=== PATIENT | female | born 1940 | race Caucasian/White ===

== ENCOUNTER → 2018-01-03 | Outpatient (CLI) | payer OTHER ==
[~2018-01-03] MED LIST: ASPI81EC; ATOR40TA; Aspirin EC81 MG PO; BENA20; CITA20 PO; ESOM20 PO; HYDACE5 PO; IBUP800 PO; Lisinopril2.5 MG; METF500; METF500 PO; METF500C PO; NEBI10 PO; NEBI5 PO; PANT40 PO; PRESERVISION L1 EACH PO; PROACE50; PROM6.25SY PO; PSYL5.85P; ROSI4; SIMV40 PO; TRAZ100 PO; UNKNOWN BP MED; UNKNOWN CHOLESTEROL; ZESTORETIC 20-121 EA PO; [UNRECOGNIZED DRUG - REMARK]
[2018-01-03 16:16] LABS: Creatinine, Urine Random 67.4 mg/dL (27.00-270.00); Protein, Urine Random 32.3 mg/dL (0.0-11.9)
== END | disposition home or self-care (01) ==
LOC: OLS 13:05
PROVIDERS: Internal Medicine
DX: N18.3 Chronic kidney disease, stage 3 (moderate) (principal)
CPT/HCPCS: 82570; 84156

== ENCOUNTER → 2018-03-02 | Outpatient (CLI) | payer OTHER | LOC: PLD 07:38 → LAB SHORT 07:38 | DX: D48.5 Neoplasm of uncertain behavior of skin (principal) | CPT/HCPCS: 88304; 88305 ==

== ENCOUNTER → 2018-12-25 | Outpatient (CLI) | payer OTHER ==
[2018-12-25 16:53] LABS: BASOPHILS ABSOLUTE AUTO 0.09 K/mm3 (0.00-0.23); BASOPHILS PERCENT AUTO 1 % (0-2); EOSINOPHILS ABSOLUTE AUTO 0.15 K/mm3 (0.00-0.68); EOSINOPHILS PERCENT AUTO 1 % (0-6); Hemoglobin 12.6 g/dL (11.5-16.0); IMMATURE GRAN ABSOLUTE AUTO 0.04 K/mm3 (0.00-0.10); IMMATURE GRAN PERCENT AUTO 0 % (0-1); LYMPHOCYTES ABSOLUTE AUTO 4.27 K/mm3 (0.84-5.20); LYMPHOCYTES PERCENT AUTO 39 % (21-46); MONOCYTES ABSOLUTE AUTO 0.56 K/mm3 (0.16-1.47); MONOCYTES PERCENT AUTO 5 % (4-13); Mean Corpuscular HGB 29.6 pg (26.0-34.0); Mean Corpuscular HGB Conc 33.2 g/dL (31.5-36.5); Mean Corpuscular Volume 89 fL (80-100); Mean Platelet Volume 9.6 fL (9.1-12.4); NEUTROPHILS ABSOLUTE AUTO 5.85 K/mm3 (1.96-9.15); NEUTROPHILS PERCENT AUTO 53 % (41-73); Platelet Count 273 K/mm3 (150-400); RDW Coefficient Variation 13.2 % (11.7-14.2); RDW Standard Deviation 43.1 fL (35.1-46.3); Red Blood Cell Count 4.25 M/mm3 (3.80-5.20); White Blood Cell Count 10.96 K/mm3 (4.00-11.30)
[2018-12-25 17:07] LABS: Albumin, Blood 3.3 g/dL (3.4-5.0); Albumin/Globulin Ratio 0.8 (0.8-1.8); Bilirubin, Total 0.3 mg/dL (0.1-1.0); Calcium, Blood 9.1 mg/dL (8.5-10.1); Creatinine, Blood 1.46 mg/dL (0.40-1.00); Potassium, Blood 4.1 mmol/L (3.5-5.5); Total Protein, Blood 7.3 g/dL (6.4-8.2)
== END | disposition home or self-care (01) ==
LOC: LAB SHORT 16:49 → LAB EV 16:49
PROVIDERS: Family Medicine
DX: R30.0 Dysuria (principal)
CPT/HCPCS: 80053; 85025; 87086

== ENCOUNTER → 2019-06-17 | Outpatient (CLI) | payer MEDICARE, OTHER | END | disposition home or self-care (01) | LOC: LAB 12:45 → LAB SHORT 12:45 | DX: R30.0 Dysuria (principal); R31.9 Hematuria, unspecified | CPT/HCPCS: 87086 ==

== ENCOUNTER 2020-08-01 12:17 | Emergency (ER) | payer MEDICARE, OTHER ==
[~2020-08-01] VITALS: Ht 157.5 cm; Wt 43.1 kg
[~2020-08-01 12:17] MED LIST changes: +AMLO5 PO; +FISH OIL 1,2001 EAC7 PO; +LISI20 PO; +NITR.4SL SL; +ROSU5 PO
[2020-08-01] MEDS ORDERED: LOSA50 PO (12:38)
[2020-08-01] MEDS ORDERED: PANT40 PO (12:38)
[2020-08-01] MEDS ORDERED: CITA20 PO (12:38)
[2020-08-01] MEDS ORDERED: AMLO5 PO (12:38)
[2020-08-01] MEDS ORDERED: GLIM2 PO (12:39)
[2020-08-01] MEDS ORDERED: PREG25 PO (12:39)
[2020-08-01] MEDS ORDERED: ZESTRIL40 M1 PO (12:39)
[2020-08-01] MEDS ORDERED: TRAZ100 PO (12:40)
[2020-08-01] MEDS ORDERED: MIRT15ST PO (12:40)
[2020-08-01] MEDS ORDERED: NEBI5 PO (12:40)
[2020-08-01] MEDS ORDERED: Aspirin EC81 MG PO (12:40)
[2020-08-01] MEDS ORDERED: ROSU10TA PO (12:41)
[2020-08-01 12:45] LABS: BASOPHILS ABSOLUTE AUTO 0.06 K/mm3 (0.00-0.23); BASOPHILS PERCENT AUTO 0 % (0-2); EOSINOPHILS ABSOLUTE AUTO 0.03 K/mm3 (0.00-0.68); EOSINOPHILS PERCENT AUTO 0 % (0-6); Hematocrit 37.1 % (33.0-51.0); Hemoglobin 11.8 g/dL (11.5-16.0); IMMATURE GRAN ABSOLUTE AUTO 0.08 K/mm3 (0.00-0.10); IMMATURE GRAN PERCENT AUTO 1 % (0-1); LYMPHOCYTES ABSOLUTE AUTO 0.84 K/mm3 (0.84-5.20); LYMPHOCYTES PERCENT AUTO 6 % (21-46); MONOCYTES ABSOLUTE AUTO 0.39 K/mm3 (0.16-1.47); MONOCYTES PERCENT AUTO 3 % (4-13); Mean Corpuscular HGB 28.8 pg (26.0-34.0); Mean Corpuscular HGB Conc 31.8 g/dL (31.5-36.5); Mean Corpuscular Volume 91 fL (80-100); Mean Platelet Volume 9.5 fL (9.1-12.4); NEUTROPHILS PERCENT AUTO 91 % (41-73); Platelet Count 282 K/mm3 (150-400); RDW Coefficient Variation 13.7 % (11.7-14.2); RDW Standard Deviation 45.9 fL (35.1-46.3)
[2020-08-01 13:02] LABS: Albumin, Blood 2.9 g/dL (3.4-5.0); Albumin/Globulin Ratio 0.6 (0.8-1.8); Bilirubin, Total 0.6 mg/dL (0.1-1.0); Bun/Creatinine Ratio 20.8 (12.0-20.0); Calcium, Blood 10.4 mg/dL (8.5-10.1); Creatinine, Blood 1.25 mg/dL (0.40-1.00); Globulin, Blood 4.5 g/dL (2.2-4.0); Potassium, Blood 4.4 mmol/L (3.5-5.5); Total Protein, Blood 7.4 g/dL (6.4-8.2)
[2020-08-01 13:37] LABS: Source, Urine Clean Catch
[2020-08-01 14:02] LABS: Appearance, Urine Clear (Clear); Bilirubin, Urine Neg (Neg); Blood, Urine 2+ (Neg); Color, Urine Yellow (P-Yellow); Glucose Qualitative, Urine 2+ (Neg); Ketones, Urine 1+ (Neg); Leukocyte Esterase, Urine 1+ (Neg); Nitrite, Urine Neg (Neg); Protein, Urine 3+ (Neg); Urobilinogen, Urine NORM (Normal)
[2020-08-01 14:20] LABS: Bacteria Few /hpf; Red Blood Cells, Urine 0-2 /hpf (0-2); Squamous Epithelial Cells Few /hpf (Few)
[2020-08-01] MEDS ORDERED: AUGMENTIN 500-1 EACH PO (14:49)
[2020-08-01] MEDS ORDERED: Zofran4 MG PO (14:49)
== END 2020-08-01 15:42 | disposition home or self-care (01) ==
LOC: ER 12:17
PROVIDERS: Emergency Medicine
DX: J18.9 Pneumonia, unspecified organism (principal); N39.0 Urinary tract infection, site not specified; C34.90 Malignant neoplasm of unspecified part of unspecified bronchus or lung; E11.9 Type 2 diabetes mellitus without complications; E11.51 Type 2 diabetes mellitus with diabetic peripheral angiopathy without gangrene; F32.9 Major depressive disorder, single episode, unspecified; F17.200 Nicotine dependence, unspecified, uncomplicated; Z79.84 Long term (current) use of oral hypoglycemic drugs; Z79.82 Long term (current) use of aspirin; Z88.0 Allergy status to penicillin; Z79.899 Other long term (current) drug therapy; Z88.8 Allergy status to other drugs, medicaments and biological substances
CPT/HCPCS: 71045; 80053; 81001; 83690; 85025; 87086; 93005; 93010; 96365; 96375; 99284-25; J0696; J2405; J7030

== ENCOUNTER 2020-08-05 08:12 | Inpatient (IN) | payer MEDICARE, OTHER ==
[~2020-08-05] VITALS: Ht 152.4 cm; Wt 37.3 kg
[~2020-08-05 08:12] MED LIST changes: +AUGMENTIN 500-1 EACH PO; +GLIM2 PO; +LOSA50 PO; +MIRT15ST PO; +PREG25 PO; +ROSU10TA PO; +ZESTRIL40 M1 PO; +Zofran4 MG PO
[2020-08-05 09:31] LABS: BASOPHILS ABSOLUTE AUTO 0.06 K/mm3 (0.00-0.23); BASOPHILS PERCENT AUTO 0 % (0-2); EOSINOPHILS ABSOLUTE AUTO 0.06 K/mm3 (0.00-0.68); EOSINOPHILS PERCENT AUTO 0 % (0-6); Hematocrit 40.9 % (33.0-51.0); Hemoglobin 12.9 g/dL (11.5-16.0); IMMATURE GRAN ABSOLUTE AUTO 0.06 K/mm3 (0.00-0.10); IMMATURE GRAN PERCENT AUTO 0 % (0-1); LYMPHOCYTES ABSOLUTE AUTO 1.08 K/mm3 (0.84-5.20); LYMPHOCYTES PERCENT AUTO 8 % (21-46); MONOCYTES ABSOLUTE AUTO 0.46 K/mm3 (0.16-1.47); MONOCYTES PERCENT AUTO 3 % (4-13); Mean Corpuscular HGB 27.9 pg (26.0-34.0); Mean Corpuscular HGB Conc 31.5 g/dL (31.5-36.5); Mean Corpuscular Volume 89 fL (80-100); Mean Platelet Volume 9.7 fL (9.1-12.4); NEUTROPHILS ABSOLUTE AUTO 11.94 K/mm3 (1.96-9.15); NEUTROPHILS PERCENT AUTO 88 % (41-73); Platelet Count 307 K/mm3 (150-400); RDW Coefficient Variation 13.8 % (11.7-14.2); RDW Standard Deviation 44.6 fL (35.1-46.3); Red Blood Cell Count 4.62 M/mm3 (3.80-5.20); White Blood Cell Count 13.66 K/mm3 (4.00-11.30)
[2020-08-05 09:49] LABS: Albumin, Blood 3.1 g/dL (3.4-5.0); Albumin/Globulin Ratio 0.7 (0.8-1.8); Bilirubin, Total 0.6 mg/dL (0.1-1.0); Calcium, Blood 10.7 mg/dL (8.5-10.1); Creatinine, Blood 1.07 mg/dL (0.40-1.00); Globulin, Blood 4.6 g/dL (2.2-4.0); Potassium, Blood 4.1 mmol/L (3.5-5.5); Total Protein, Blood 7.7 g/dL (6.4-8.2)
[2020-08-05] MEDS ORDERED: Ventolin/Prove6.7 GM INH (10:24)
[2020-08-05] MEDS ORDERED: LOSA50 PO (13:21)
[2020-08-05 15:24] LABS: Hematocrit 37.7 % (33.0-51.0); Hemoglobin 11.8 g/dL (11.5-16.0)
[2020-08-05] MEDS ORDERED: ONDA4 PO (18:09)
[2020-08-05] MEDS ORDERED: AMOCLA500 PO (18:09)
--- NOTE | 2020-08-05 18:17 | NUR ---
ADMISSION / WALLPAPER HANGER: REPORT RECEIVED FROM PERI Kimble RN. PT ARRIVED TO ICU-13 AT APPROX 1710. SHE IS AWAKE, A&O AT THAT TIME & IS ABLE TO STAND & TX FROM GURNEY TO BED W/ MINIMAL ASSIST FOR BALANCE. SHE STS NOT FEELING WELL BUT IS NOT ACTIVELY HAVING ANY NAUSEA OR VOMITING. MONITORS ATTACHED TO PT & IT IS NOTED THAT SHE IS HYPERTENSIVE W/ SBP 180s. TELE MONITOR SHOWS SR W/ HR 90s. AT APPROX 1725 WALLPAPER HANGER STAFF ARRIVES AT BEDSIDE & HAS TAKEN PT DOWN FOR PROCEDURE W/ DR MOULTON. MOST OF ADMISSION HAS BEEN COMPLETED W/ PT's NIECE, JOSSY, WHO IS AT BEDSIDE & ASSISTS W/ CARE AT HOME. PALLIATIVE CARE HAS BEEN NOTIFIED OF CONSULT FOR ADVANCED CARE PLANNING VIA [employer]. WILL AWAIT PT RETURN FROM WALLPAPER HANGER.
[2020-08-05 20:34] LABS: Source, Urine Catheter
[2020-08-05 20:39] LABS: Bilirubin, Urine Neg (Neg); Blood, Urine 1+ (Neg); Glucose Qualitative, Urine Neg (Neg); Ketones, Urine 3+ (Neg); Leukocyte Esterase, Urine Neg (Neg); Nitrite, Urine Neg (Neg); Protein, Urine 2+ (Neg); Specific Gravity, Urine 1.015 (1.003-1.022); Urobilinogen, Urine NORM (Normal)
[2020-08-05 20:44] LABS: Appearance, Urine Clear (Clear); Color, Urine Yellow (P-Yellow)
[2020-08-05 20:55] LABS: Amorphous Light (0-Heavy); Bacteria Not Seen /hpf; Red Blood Cells, Urine Rare /hpf (0-2); Squamous Epithelial Cells Not Seen /hpf (Few); White Blood Cells, Urine Not Seen /hpf (0-5)
[2020-08-05 21:16] LABS: Hematocrit 34.4 % (33.0-51.0); Hemoglobin 10.5 g/dL (11.5-16.0)
[2020-08-05 21:31] LABS: International Normalized Ratio 1.1; Prothrombin Time Results 11.7 Sec (9.7-11.5)
--- NOTE | 2020-08-05 22:34 | NUR ---
PT TO ICU 13 FROM COMMUNITY REPRESENTATIVE. PT DROWSY D/T SEDATION BUT AROUSABLE AND ABLE TO APPROPRIATELY ANSWER QUESTIONS. RIGHT FEMORAL ACCESS SITE, ANGIOSEAL CLOSURE DEVICE COVERED WITH CHG TEGADERM DRESSING. SITE SOFT/NONTENDER, NO BLEEDING OR EVIDENCE OF HEMATOMA. DISTAL PULSES/PALLOR WNL FOR PT. PT DENIES PAIN AT THIS TIME. ALL VSS. NS @125 ML/HR INFUSING. HEPARIN GTT STARTED AT 15 U/KG/HR (DOSE WT 37 KG). SEE FULL ADMISSION ASSESSMENT.
[2020-08-06 03:22] LABS: BASOPHILS ABSOLUTE AUTO 0.04 K/mm3 (0.00-0.23); BASOPHILS PERCENT AUTO 0 % (0-2); EOSINOPHILS ABSOLUTE AUTO 0.01 K/mm3 (0.00-0.68); EOSINOPHILS PERCENT AUTO 0 % (0-6); Hematocrit 28.7 % (33.0-51.0); Hemoglobin 9.1 g/dL (11.5-16.0); IMMATURE GRAN ABSOLUTE AUTO 0.04 K/mm3 (0.00-0.10); IMMATURE GRAN PERCENT AUTO 0 % (0-1); LYMPHOCYTES PERCENT AUTO 8 % (21-46); MONOCYTES ABSOLUTE AUTO 0.68 K/mm3 (0.16-1.47); MONOCYTES PERCENT AUTO 5 % (4-13); Mean Corpuscular HGB 28.8 pg (26.0-34.0); Mean Corpuscular HGB Conc 31.7 g/dL (31.5-36.5); Mean Corpuscular Volume 91 fL (80-100); Mean Platelet Volume 9.6 fL (9.1-12.4); NEUTROPHILS PERCENT AUTO 86 % (41-73); Platelet Count 196 K/mm3 (150-400); RDW Coefficient Variation 14.1 % (11.7-14.2); RDW Standard Deviation 46.8 fL (35.1-46.3); Red Blood Cell Count 3.16 M/mm3 (3.80-5.20); White Blood Cell Count 13.27 K/mm3 (4.00-11.30)
[2020-08-06 03:42] LABS: Alanine Aminotransfer (ALT/SGP 8 U/L (12-78); Albumin/Globulin Ratio 0.6 (0.8-1.8); Alk Phos 58 U/L (50-136); Anion Gap 10 mmol/L (6-16); Aspartate Aminotrans (AST/SGOT 12 U/L (12-37); Bilirubin, Total 0.3 mg/dL (0.1-1.0); Blood Urea Nitrogen 24 mg/dL (8-24); Bun/Creatinine Ratio 28.8 (12.0-20.0); CO2, Blood 21 mmol/L (21-32); Chloride, Blood 111 mmol/L (98-108); Creatinine, Blood 0.83 mg/dL (0.40-1.00); Globulin, Blood 3.2 g/dL (2.2-4.0); Glomerular Filtration Rate >60 (60-); Glucose, Blood 89 mg/dL (70-99); Potassium, Blood 3.8 mmol/L (3.5-5.5); Sodium, Blood 142 mmol/L (136-145); Total Protein, Blood 5.2 g/dL (6.4-8.2)
--- NOTE | 2020-08-06 05:45 | NUR ---
SHIFT SUMMARY PT REMAINS ALERT AND ORIENTED X4. PT ABLE TO SIT UP AND DRINK WITHOUT DIFFICULTY, NO COUGHING NOTICED. SATS CURRENTLY 96% ON 2LNC. PT REPORTS 6/10 BACK PAIN, PER PT THIS IS CHRONIC PAIN EXACERBATED FROM LAYING IN BED. PT REPOSITIONED NEEDED. PT SLIGHTLY HYPOTENSIVE INTERMITTENTLY, NOT SUSTAINED. RIGHT FEMORAL ACCESS SITE REMAINS SOFT, NO EVIDENCE OF BLEEDING OR HEMATOMA, PT REPORTS MILD DISCOMFORT WITH PALPATION. NS@125 ML/HR, HEPARIN @15 U/KG/HR. WILL REPORT TO DAYSHIFT NURSE.
--- NOTE | 2020-08-06 10:20 | NUR ---
CARE ASSUMED 0700 PT DROWSY BUT EASILY AWAKENED. PT APEPARS PALE AND CACHECTIC. A/O TO LOCATION, EVENT, AND YEAR. ABLE TO ANSWER ALL QUESTIONS. CURRENTLY ON HEPARIN DRIP @ 15 UNITS/KG/HR, CONFIRMED WITH SECOND RN AND EMAR. ON 2 L NC, SPO2 96%. MAP'S 55-65. WELSH CATH IN PLACE WITH SMALL AMOUTN OF CLEAR YELLOW URINE. RIGHT FEMORAL ARTERY ACCESS SITE C/D/I NO SIGNS/SYMPTOMNS OF HEMATOMA. DISTAL LIMBS CAP REFILL WNL AND PULSES STRONG. MORNING BP MEDICATION HELD DUE TO LIABLE MAPS, PLAN TO ADDRESS WITH PROVIDER THIS MORNING. SPOKE TO NIECE AND UPDATED ON PT. ALL QUESTIONS ANSWERED.
[2020-08-06 10:31] LABS: Hemoglobin 8.5 g/dL (11.5-16.0)
--- NOTE | 2020-08-06 14:21 | NUR ---
UPDATE DR. MOULTON IN TO SEE PT WITH PA. NEW ORDERS RECEIVED TO D/C HEPARIN AND START PO PLAVIX. DR. MOULTON STATES NO PLAN TO RETURN TO [facility] AT THIS TIME BUT PT HAS FOLLOW UP IN AUG.
--- NOTE | 2020-08-06 18:10 | NUR ---
ICU TRANSFER TO [place] [id number] APPROX 1700. DOT NET DEVELOPER ATTEMPT TO OBTAIN CBG BY DRAWING BLOOD VIA IV SITE HOWEVER UNSUCCESSFUL, GEAR TECHNICIAN OBTAIN CBG, 80, NO INSULIN REQUIRED. CL ADA TRAY PROVIDED BY DOT NET DEVELOPER. PT ASK TO ADV DIET TO SOFT, ORDER UPDATED, SHE STATE TOLERATE WELL HOWEVER POOR APPETITE @ THIS TIME. SHE IS A/O X4, WEAK/FATIGUED. SON @ BEDSIDE STATE SHE APPEARS MUCH IMPROVED FROM ADMIT. H&H LOW, DR AWARE/DOT NET DEVELOPER & IS MONITORING. WELSH CATH PATENT DRJAN LIGHT YELLOW URINE. HRR w MURMUR, LS CLEAR/DECREASED ON RA, BT+/ABD SOFT. VSS. PT ORIENT TO /CALL SYSTEM. SITTING UP IN BED FOR DINNER. PLEASANT/COOPERATIVE AFFECT.
--- NOTE | 2020-08-06 18:13 | NUR ---
Initial spiritual care note: Per admit trigger, I met with Reina to offer prayer and encouragement. She was qute tired and appeared frail. she had trouble staying awake. Visit kept short. Provided prayer and assurance of care. Maintenance And Operations Supervisor services will remain available.
--- NOTE | 2020-08-06 18:18 | NUR ---
TRANSFER TO MEDICAL FLOOR PT TRANSFERRED TO MEDICAL FLOOR VIA WHEELCHAIR. PTS BELONGINGS GIVEN TO PT. REPORT GIVEN TO BLESSING MONK. RN MADE AWARE OF PTS BLOOD SUGAR DECREASING TO 48 AND DEXTROSE 50% 1/2 AMP GIVEN AT 1218. PTS BLOOD GLUCOSE RECHECKED WITH IMPROVEMENT TO 134. PT ADVANCED TO CLEAR DIET AND TOLERATED WELL. VSS.
[2020-08-07 04:50] LABS: Hematocrit 26.6 % (33.0-51.0); Hemoglobin 8.6 g/dL (11.5-16.0); Mean Corpuscular HGB 28.8 pg (26.0-34.0); Mean Corpuscular HGB Conc 32.3 g/dL (31.5-36.5); Mean Corpuscular Volume 89 fL (80-100); Mean Platelet Volume 9.8 fL (9.1-12.4); Platelet Count 182 K/mm3 (150-400); RDW Coefficient Variation 14.4 % (11.7-14.2); RDW Standard Deviation 46.2 fL (35.1-46.3); Red Blood Cell Count 2.99 M/mm3 (3.80-5.20); White Blood Cell Count 8.97 K/mm3 (4.00-11.30)
--- NOTE | 2020-08-07 04:58 | NUR ---
LABORER/KEY MAN SUMMARY NO ACUTE CHANGES NOTED TO PATIENT THIS SHIFT. PATIENT A&OX4, ABLE TO MAKE NEEDS KNOWN WITHOUT ANY DIFFICULTY. NO C/O ANY PAIN OR DISCOMFORT DURING THIS SHIFT. PATIENT HAD A SLIGHTY LOW CBG OF 68, GIVEN ORANGE JUICE. CBG WILL BE RECHECKED AT 0600. WELSH CATH PATENT, DRAINING CLEAR YELLOW URINE. WILL CONTINUE TO MONITOR PATIENT AND WILL REPORT TO ONCOMING RN.
[2020-08-07 05:08] LABS: Anion Gap 4 mmol/L (6-16); Blood Urea Nitrogen 16 mg/dL (8-24); Bun/Creatinine Ratio 19.7 (12.0-20.0); CO2, Blood 25 mmol/L (21-32); Calcium, Blood 8.9 mg/dL (8.5-10.1); Chloride, Blood 113 mmol/L (98-108); Creatinine, Blood 0.81 mg/dL (0.40-1.00); Glomerular Filtration Rate >60 (60-); Glucose, Blood 73 mg/dL (70-99); Phosphorus, Blood 1.6 mg/dL (2.5-4.9); Potassium, Blood 3.2 mmol/L (3.5-5.5); Sodium, Blood 142 mmol/L (136-145)
--- NOTE | 2020-08-07 16:20 | NUR ---
SUMMARY PT IS A/O X4, SHE STATE FEELING IMPROVED FROM ADMISSION HOWEVER STATE CONTINUING WEAKNESS/FATIGUE. DR ROSARIO ORDER PT/OT EVAL/TX, STATE POSSIBLE D/C TOMORROW. PT WAS UP TO CHAIR FOR SHORT TIME, PARTICIPATE w PT/OT. 1 ASSIST. WELSH CATH CONTINUES @ THIS TIME, PATENT/NG. PT IS S/P CELIAC ARTERY STENT BY DR MOULTON, R FEMORAL DRSG CDI. K+ 3.2, PHOS LOW, DR ROSARIO ORDER IV KPHOS, INFUSING @ THIS TIME HOWEVER @ LOWERED RATE D/T DISCOMFORT. PT'S DAUGHTER IN LAW IN TO VISIT THIS AFTERNOON. VSS, BIOX >90% RA, AFEBRILE.
--- NOTE | 2020-08-08 04:56 | NUR ---
No acute changes noted to patient this shift. No c/o pain or any discomfort. A&Ox4, able to make needs known without any difficulty. Cooperative to care and pleasant. Ongoing K phos infusion. In bed, sleeping most of the shift. Rodriges cath draining clear yellow urine. Wound dressing to surgical site in R inner thigh area CDI. Call light button within reach. Will continue to monitor patient. Will report to oncoming RN.
[2020-08-08 05:34] LABS: Hematocrit 29.4 % (33.0-51.0); Hemoglobin 9.3 g/dL (11.5-16.0)
[2020-08-08 05:58] LABS: Albumin, Blood 2.1 g/dL (3.4-5.0); Anion Gap 7 mmol/L (6-16); Blood Urea Nitrogen 16 mg/dL (8-24); Bun/Creatinine Ratio 18.7 (12.0-20.0); CHOL/HDL RATIO 2.4; CO2, Blood 24 mmol/L (21-32); Calcium, Blood 8.7 mg/dL (8.5-10.1); Chloride, Blood 110 mmol/L (98-108); Cholesterol 115 mg/dL (50-200); Creatinine, Blood 0.86 mg/dL (0.40-1.00); Glomerular Filtration Rate >60 (60-); Glucose, Blood 89 mg/dL (70-99); HDL Cholesterol 47 mg/dL (>39); LDL/HDL RATIO 0.9; Low Density Lipoprotein Chol 41 mg/dL (0-110); Magnesium, Blood 1.4 mg/dL (1.6-2.4); Potassium, Blood 3.6 mmol/L (3.5-5.5); Sodium, Blood 141 mmol/L (136-145); Triglycerides 134 mg/dL (30-160); Very Low Density Lipoprot Chol 26 mg/dL (6-32)
--- NOTE | 2020-08-08 18:42 | NUR ---
SHIFT SUMMARY PT AxOx4. PLEASANT AND COOPERATIVE WITH CARE TODAY. DC'D WELSH. URINATING WITHOUT DIFFICULTY. TRIAL OFF O2 ALL DAY, BREATHING WITHOUT DIFFICULTY. PT REPORTS HAVING MORE ENERGY TODAY. WENT ON 2 WALKS IN THE [place] WITH SBA. SAW OT TODAY. DR TENORIO SAID PLAN TO DC SOMETIME THIS WEEKEND WITH [facility] FRASER. PT DENIES PAIN. VITALS REVIEWED. RESTING COMFORTABLY IN BED WITH CALL LIGHT IN REACH.
--- NOTE | 2020-08-08 19:10 | NUR ---
ASSUMED CARE RECEIVED REPORT FROM ALESHIA FORD. ASSUMED CARE OF PT. NO S/S ACUTE DISTRESS NOTED AT THIS TIME. RESPS EVEN AND UNLABORED. ANGIOCATH SITE TO RT GROIN C/D/I, NO HEMATOMA OR OOZING NOTED, NO C/O PAIN OR TENDERNESS. PT DENIES NEEDS AT THIS TIME. CALL LIGHT, POSSESSIONS IN REACH. WILL CONTINUE TO MONITOR AND ASSESS PT CONDITION.
--- NOTE | 2020-08-09 03:36 | NUR ---
SHIFT SUMMARY PT ASLEEP AT THIS TIME, NO S/S ACUTE DISTRESS NOTED. WAS MONITORED EVERY 1-2 HOURS WITH NEEDS MET. NO ACUTE CHANGES IN CONDITION NOTED. ANGIOCATH REMAINS C/D/I. NO C/O PAIN OR DISCOMFORT. VS REVIEWED. WILL CONTINUE TO ASSESS AND PROVIDE CARE NEEDED UNTIL DAY RN ASSUMES CARE.
--- NOTE | 2020-08-09 17:52 | NUR ---
SHIFT SUMMARY PT AxOx4. PLEASANT AND COOPERATIVE WITH CARE. C/O SOME KNEE PAIN TODAY. TYLENOL AND HEAT PACKS GIVEN WITH GOOD RESULT. OTHERWISE, PT STATES SHE IS FEELING A LOT BETTER TODAY. PER CREW DISPATCHER REPORT, PT STILL DESAT'S AT NOC. 2L O2 ADMIN AT NOC WITH GOOD RESULTS. DR TENORIO ORDERING OVERNIGHT SLEEP STUDY, AND PLAN TO DC TOMORROW WITH HH FOLLOW UP. WALKED IN [place]OOGIE WITH PT. STILL SBA. ALSO NOTED PT HAS NOT HAD A BM SINCE ADMISSION. DR TENOROI ORDERED BOWEL PROTOCOL. STARTED WITH MOM TONIGHT. PT STATES SHE HAS OCCASIONAL CONSTIPATION, AND USES MOM AT HOME. LOW BP NOTED AT AFTERNOON VITALS. RECHECKED WNL. FULL VITALS REVIEWED. PT RESTING COMFORTABLY IN BED AT THIS TIME. NO CONCERNS. CALL LIGHT IN REACH.
--- NOTE | 2020-08-09 18:47 | NUR ---
TROUBLE SWALLOWING PT HAD DIFFICULTY SWALLOWING THIS EVENING. PT STATES IT "FEELS LIKE SOMETHING IS STUCK" WHILE POINTING TO HER THROAT. NO RESP DISTRESS NOTED. O2 SATS IN THE MID 90S ON RA. PT C/O THIS FEELING EARLIER TO DR. TENORIO. PT COACHED IN EATING SLOWER. PT STATES SHE THINKS IT HAPPENS MORE OFTEN WITH MEAT. THIS EVENING IT WAS CHICKEN. PT PLACED ON [facility] SOFT DIET. PT SAT IN BATHROOM SPITTING UP AND GAGGING TRYING TO GET STUCK FOOD CLEARED. PT NOW IN BED. STATES SHE FEELS BETTER. PT EDUCATED ON HER NEW DIET AND AGAIN TO EAT SLOWER. PT STATES SHE UNDERSTANDS.
--- NOTE | 2020-08-10 05:09 | NUR ---
SHIFT SUMMARY LYING IN SEMI FOWLERS WITH EYES CLOSED. HAS RESTED OFF AND ON THROUGHOUT SHIFT. SWALLOWS MEDS WITHOUT DIFFICULTY WITH WATER. SLEEP STUDY HAS BEEN IN PROGRESS THIS SHIFT. CONTINUES WITH O2 AT 2L/NC. DENIES FURTHER NEEDS AT THIS TIME. SAFETY MEASURES IN PLACE. WILL CONTINUE TO MONITOR AND GIVE HAND OFF TO ONCOMING SHIFT USING SBAR.
[2020-08-10] MEDS ORDERED: CLOP75 PO (16:07)
--- NOTE | 2020-08-10 17:25 | NUR ---
DC SUMMARY PT AxOx4. PT DISCHARGING HOME WITH HER SON. AMBULATING INDEPENDENTLY. DISCHARGE INSTRUCTIONS DISCUSSED, INCLUDING NEW MEDICATIONS, AND FOLLOW UP CARE. PT GIVEN INFO ON ESTABLISHING CARE WITH NEW PCP. VITAL SIGNS REVIEWED. DENIES PAIN. NO FURTHER QUESTIONS AT THIS TIME. PT ESCORTED OUT VIA WC.
== END 2020-08-10 17:30 | disposition home or self-care (01) | DRG 357 ==
LOC: ER 08:12 → ICUW 13:13 → PCU 13:13 → MEDS 13:13 → ICUW 16:41 → MEDS 08-06 17:03
PROVIDERS: Emergency Medicine; Internal Medicine; Nurse Practitioner Acute Care; Radiology Diagnostic Radiology; ADMIT Internal Medicine
PROC: 04713DZ Dilation of Celiac Artery with Intraluminal Device, Percutaneous Approach (ICD-10-PCS; principal; 2020-08-05)
PROC: B41D1ZZ Fluoroscopy of Aorta and Bilateral Lower Extremity Arteries using Low Osmolar Contrast (ICD-10-PCS; 2020-08-05)
PROC: B4141ZZ Fluoroscopy of Superior Mesenteric Artery using Low Osmolar Contrast (ICD-10-PCS; 2020-08-05)
PROC: B4151ZZ Fluoroscopy of Inferior Mesenteric Artery using Low Osmolar Contrast (ICD-10-PCS; 2020-08-05)
DX: K55.069 Acute infarction of intestine, part and extent unspecified (principal); C34.90 Malignant neoplasm of unspecified part of unspecified bronchus or lung; R64 Cachexia; Z68.1 Body mass index [BMI] 19.9 or less, adult; E44.0 Moderate protein-calorie malnutrition; E11.51 Type 2 diabetes mellitus with diabetic peripheral angiopathy without gangrene; F32.9 Major depressive disorder, single episode, unspecified; F17.210 Nicotine dependence, cigarettes, uncomplicated; Z85.51 Personal history of malignant neoplasm of bladder; D73.5 Infarction of spleen; N18.30 Chronic kidney disease, stage 3 unspecified; E11.22 Type 2 diabetes mellitus with diabetic chronic kidney disease; I12.9 Hypertensive chronic kidney disease with stage 1 through stage 4 chronic kidney disease, or unspecified chronic kidney disease; J44.9 Chronic obstructive pulmonary disease, unspecified; Z79.82 Long term (current) use of aspirin; I65.23 Occlusion and stenosis of bilateral carotid arteries; Z66 Do not resuscitate; E83.42 Hypomagnesemia; R09.02 Hypoxemia; G47.36 Sleep related hypoventilation in conditions classified elsewhere; Z79.84 Long term (current) use of oral hypoglycemic drugs
CPT/HCPCS: 36415; 37236; 51702; 74177; 75726; 76937; 80053; 80061; 80069; 81001; 82272; 82947; 83605; 83735; 85014; 85018; 85025; 85027; 85610; 85730; 86850; 86900; 86901; 94640; 94760; 94762; 96361; 96374-59; 96375; 97110; 97116; 97162; 97165; 97530; 97535; 99152; 99153; 99285-25; A9270; A9270-GY; C1725; C1760; C1769; C1876; C1887; C1894; C9113; G0008; J1644; J2250; J2270; J2405; J3010; J3475; J7030; J7060; Q2038; Q9967

== ENCOUNTER 2020-08-13 11:09 | Inpatient (IN) | payer MEDICARE, OTHER ==
[~2020-08-13] VITALS: Ht 152.4 cm; Wt 38.5 kg
[~2020-08-13 11:09] MED LIST changes: +AMOCLA500 PO; +CLOP75 PO; +ONDA4 PO; +Ventolin/Prove6.7 GM INH
[2020-08-13 11:36] LABS: BASOPHILS ABSOLUTE AUTO 0.07 K/mm3 (0.00-0.23); BASOPHILS PERCENT AUTO 1 % (0-2); EOSINOPHILS PERCENT AUTO 1 % (0-6); Hematocrit 33.9 % (33.0-51.0); Hemoglobin 10.4 g/dL (11.5-16.0); IMMATURE GRAN ABSOLUTE AUTO 0.06 K/mm3 (0.00-0.10); IMMATURE GRAN PERCENT AUTO 1 % (0-1); LYMPHOCYTES ABSOLUTE AUTO 1.15 K/mm3 (0.84-5.20); LYMPHOCYTES PERCENT AUTO 11 % (21-46); MONOCYTES ABSOLUTE AUTO 0.55 K/mm3 (0.16-1.47); MONOCYTES PERCENT AUTO 5 % (4-13); Mean Corpuscular HGB 28.2 pg (26.0-34.0); Mean Corpuscular HGB Conc 30.7 g/dL (31.5-36.5); Mean Corpuscular Volume 92 fL (80-100); Mean Platelet Volume 10.1 fL (9.1-12.4); NEUTROPHILS ABSOLUTE AUTO 8.83 K/mm3 (1.96-9.15); NEUTROPHILS PERCENT AUTO 82 % (41-73); Platelet Count 329 K/mm3 (150-400); RDW Standard Deviation 50.4 fL (35.1-46.3); Red Blood Cell Count 3.69 M/mm3 (3.80-5.20); White Blood Cell Count 10.76 K/mm3 (4.00-11.30)
[2020-08-13 12:19] LABS: Alanine Aminotransfer (ALT/SGP 14 U/L (12-78); Albumin, Blood 2.4 g/dL (3.4-5.0); Albumin/Globulin Ratio 0.5 (0.8-1.8); Alk Phos 69 U/L (50-136); Anion Gap 6 mmol/L (6-16); Aspartate Aminotrans (AST/SGOT 18 U/L (12-37); Bilirubin, Total 0.4 mg/dL (0.1-1.0); Blood Urea Nitrogen 23 mg/dL (8-24); Bun/Creatinine Ratio 26.7 (12.0-20.0); CO2, Blood 24 mmol/L (21-32); Calcium, Blood 9.7 mg/dL (8.5-10.1); Chloride, Blood 109 mmol/L (98-108); Creatinine, Blood 0.86 mg/dL (0.40-1.00); Globulin, Blood 4.6 g/dL (2.2-4.0); Glomerular Filtration Rate >60 (60-); Glucose, Blood 53 mg/dL (70-99); Potassium, Blood 4.5 mmol/L (3.5-5.5); Sodium, Blood 139 mmol/L (136-145)
[2020-08-13] MEDS ORDERED: Mirtazapine7.5 MG PO (15:13)
--- NOTE | 2020-08-13 17:58 | NUR ---
SHIFT SUMMARY PT ADMITTED TO UNIT AT 1720. PT IS AOX4. PT DENIES PAIN, N/V. PT DOES EXPERIENCE SOB WITH EXERTION. PT DC'D X2 DAYS AGO AND NOW BACK WITH DYSPHAGIA. PT ORIENTED TO ROOM AND CALL LIGHT. PT HAD CT SCAN THIS GIGI. AWAITING TRANSFER BACK TO UNIT. THIS RN WILL CONTINUE TO MONITOR.
--- NOTE | 2020-08-13 18:33 | NUR ---
Care done by [employer] DEVELOPER 2 student. VIANEY
[2020-08-14 04:57] LABS: BASOPHILS ABSOLUTE AUTO 0.03 K/mm3 (0.00-0.23); BASOPHILS PERCENT AUTO 0 % (0-2); EOSINOPHILS ABSOLUTE AUTO 0.13 K/mm3 (0.00-0.68); EOSINOPHILS PERCENT AUTO 2 % (0-6); Hematocrit 27.3 % (33.0-51.0); Hemoglobin 8.4 g/dL (11.5-16.0); IMMATURE GRAN ABSOLUTE AUTO 0.03 K/mm3 (0.00-0.10); IMMATURE GRAN PERCENT AUTO 0 % (0-1); LYMPHOCYTES ABSOLUTE AUTO 0.95 K/mm3 (0.84-5.20); LYMPHOCYTES PERCENT AUTO 12 % (21-46); MONOCYTES PERCENT AUTO 7 % (4-13); Mean Corpuscular HGB 27.8 pg (26.0-34.0); Mean Corpuscular HGB Conc 30.8 g/dL (31.5-36.5); Mean Corpuscular Volume 90 fL (80-100); Mean Platelet Volume 9.1 fL (9.1-12.4); NEUTROPHILS ABSOLUTE AUTO 6.51 K/mm3 (1.96-9.15); NEUTROPHILS PERCENT AUTO 79 % (41-73); Platelet Count 285 K/mm3 (150-400); RDW Coefficient Variation 14.9 % (11.7-14.2); Red Blood Cell Count 3.02 M/mm3 (3.80-5.20); White Blood Cell Count 8.25 K/mm3 (4.00-11.30)
[2020-08-14 05:19] LABS: Alanine Aminotransfer (ALT/SGP 10 U/L (12-78); Albumin/Globulin Ratio 0.6 (0.8-1.8); Alk Phos 59 U/L (50-136); Anion Gap 3 mmol/L (6-16); Aspartate Aminotrans (AST/SGOT 8 U/L (12-37); Bilirubin, Total 0.3 mg/dL (0.1-1.0); Blood Urea Nitrogen 14 mg/dL (8-24); Bun/Creatinine Ratio 15.7 (12.0-20.0); CO2, Blood 28 mmol/L (21-32); Calcium, Blood 9.1 mg/dL (8.5-10.1); Chloride, Blood 107 mmol/L (98-108); Creatinine, Blood 0.89 mg/dL (0.40-1.00); Globulin, Blood 3.6 g/dL (2.2-4.0); Glomerular Filtration Rate >60 (60-); Glucose, Blood 103 mg/dL (70-99); Potassium, Blood 4.4 mmol/L (3.5-5.5); Sodium, Blood 138 mmol/L (136-145); Total Protein, Blood 5.6 g/dL (6.4-8.2)
--- NOTE | 2020-08-14 05:44 | NUR ---
KARATE BLACK BELT SUMMARY ALERT AND ORIENTED. DENIES PAIN, BREATHING IS UNLABORED. CURRENTLY NPO SINCE 0000 FOR BARIUM SWALLOW. VSS. NO ACUTE CHANGES AT THIS TIME. BED IN LOWEST POSITION WITH CALL LIGHT IN REACH. WILL CONTINUE TO MONITOR AND REPORT TO ONCOMING RN.
--- NOTE | 2020-08-14 16:43 | NUR ---
SHIFT SUMMARY BARIUM SWALLOW COMPLETED. PATIENT HAS A NARROWED ESOPHAGUS. DIET CHANGED TO ACCOMODATE. PATIENT IS UNINTERESTED IN TREATMENT FOR HER CANCERS AND WOULD LIKE TO DC ON HOSPICE. GI CONSULT CALLED FOR POSSIBLE UPPER ENDO. MEDICATED FOR PAIN X1. OTHERWISE NO COMPLAINTS. NO N/V
--- NOTE | 2020-08-15 04:07 | NUR ---
CAMPUS CHAPLAIN SUMMARY ALERT AND ORIENTED, SBA TO BATHROOM. DENIES PAIN. BREATHING IS UNLABORED. VSS. NO ACUTE CHANGES AT THIS TIME. BED IN LOWEST POSITON WITH CALL LIGHT IN REACH. WILL CONTINUE TO MONITOR AND REPORT TO ONCOMING RN.
--- NOTE | 2020-08-15 12:55 | NUR ---
PT INTO [facility] FROM [facility] VIA [id number]. History, Chart, Medications and Allergies reviewed before start of procedure. Lungs clear T/O to Auscultation. Patient confirms NPO status and agrees with scheduled surgery.
--- NOTE | 2020-08-15 13:24 | NUR ---
08/15/20 1324 ANDREA FATIMA History, Chart, Medications and Allergies reviewed before start of procedure. O2 VIA N/C INTACT THROUGHOUT SEDATION/PROCEDURE. 3-LEAD EKG REVIEWED WITH PHYSICIAN PRIOR TO START OF PROCEDURE. MONITOR INTACT WITH CONTINUOUS PULSE OXIMETRY AND INTERMITTENT BP. PATIENT DETERMINED TO BE ASA APPROPRIATE FOR PROPOFOL SEDATION PRIOR TO START OF PROCEDURE BY DR. MAYFIELD.
--- NOTE | 2020-08-15 13:28 | NUR ---
PATIENT IS PLEASANT, AND OFF TO SURGERY. NO ACUTE CONCERNS AT THIS TIME.
--- NOTE | 2020-08-15 18:18 | NUR ---
shift summary patient pleasant. had an egd today. she has been independent in the room. she denies pain or nausea. she did state she was feeling hungry but worried she wouldn't be able to swallow. she did have biopsies of the esophagus. she is alert and oriented. no acute concerns at this time.
--- NOTE | 2020-08-16 05:58 | NUR ---
SHIFT SUMMARY NO ACUTE CHANGES THIS SHIFT. MEDICATED FOR PAIN X1 PER JAN. SLEPT T/O NIGHT. PT IS LAYING IN BED. EYES CLOSED WITH EVEN AND UNLABORED RESPIRATIONS. BED IN LOWERED POSITION. CALL LIGHT AND PERSONAL ITEMS WITHIN REACH. NO APPARENT NEEDS OR DISTRESS AT THIS TIME, WILL CONTINUE TO MONITOR UNTIL REPORT GIVEN TO DAY RN.
[2020-08-16 08:29] LABS: BASOPHILS ABSOLUTE AUTO 0.04 K/mm3 (0.00-0.23); BASOPHILS PERCENT AUTO 0 % (0-2); EOSINOPHILS ABSOLUTE AUTO 0.14 K/mm3 (0.00-0.68); EOSINOPHILS PERCENT AUTO 2 % (0-6); Hematocrit 31.2 % (33.0-51.0); Hemoglobin 9.6 g/dL (11.5-16.0); IMMATURE GRAN ABSOLUTE AUTO 0.02 K/mm3 (0.00-0.10); IMMATURE GRAN PERCENT AUTO 0 % (0-1); LYMPHOCYTES ABSOLUTE AUTO 0.91 K/mm3 (0.84-5.20); LYMPHOCYTES PERCENT AUTO 10 % (21-46); MONOCYTES ABSOLUTE AUTO 0.42 K/mm3 (0.16-1.47); MONOCYTES PERCENT AUTO 5 % (4-13); Mean Corpuscular HGB 27.8 pg (26.0-34.0); Mean Corpuscular HGB Conc 30.8 g/dL (31.5-36.5); Mean Corpuscular Volume 90 fL (80-100); Mean Platelet Volume 9.1 fL (9.1-12.4); NEUTROPHILS ABSOLUTE AUTO 7.65 K/mm3 (1.96-9.15); NEUTROPHILS PERCENT AUTO 83 % (41-73); Platelet Count 340 K/mm3 (150-400); RDW Coefficient Variation 14.6 % (11.7-14.2); RDW Standard Deviation 47.6 fL (35.1-46.3); Red Blood Cell Count 3.45 M/mm3 (3.80-5.20); White Blood Cell Count 9.18 K/mm3 (4.00-11.30)
[2020-08-16 08:45] LABS: Albumin, Blood 2.3 g/dL (3.4-5.0); Albumin/Globulin Ratio 0.6 (0.8-1.8); Bilirubin, Total 0.5 mg/dL (0.1-1.0); Bun/Creatinine Ratio 15.5 (12.0-20.0); Calcium, Blood 9.7 mg/dL (8.5-10.1); Creatinine, Blood 0.97 mg/dL (0.40-1.00); Globulin, Blood 3.8 g/dL (2.2-4.0); Magnesium, Blood 1.8 mg/dL (1.6-2.4); Potassium, Blood 4.2 mmol/L (3.5-5.5); Total Protein, Blood 6.1 g/dL (6.4-8.2)
[2020-08-16 08:48] LABS: Percent Saturation 18.9 % (15.0-50.0)
--- NOTE | 2020-08-16 18:23 | NUR ---
shift summary patient is pleasant, alert and oriented. she is expected discharge tomorrow home with a friend on hospice. no acute concerns per patient. she denies pain and states she is just working on her swallowing.
[2020-08-16] MEDS ORDERED: CARAFATE PO (21:35)
[2020-08-16] MEDS ORDERED: LIDOCAINE 2% PO (21:37)
--- NOTE | 2020-08-17 04:32 | NUR ---
SHIFT SUMMARY NO ACUTE CHANGES THIS SHIFT. PT SLEPT T/O NIGHT WITH NO COMPLAINTS. PT LAYING IN BED WITH EYES CLOSED, EVEN AND UNLABORED RESPIRATIONS, BED IN LOWERED POSITION. CALL LIGHT AND PERSONAL ITEM WITHIN REACH. NO APPARENT NEEDS OR DISTRESS AT THIS TIME. WILL CONTINUE TO MONITOR UNTIL REPORT GIVEN TO DAY RN.
--- NOTE | 2020-08-17 14:10 | NUR ---
DISCHARGE SUMMARY PATIENT IS PLEASANT, ALERT AND ORIENTED. DENIES ANY CONCERNS AT TTIME OF DISCHARGE. IV REMOVED. LEFT WITH PATIENT'S FRIEND. PATIENT WHEELED TO THE CAR.
--- NOTE | 2020-08-17 17:32 | NUR ---
pt wanted to discharge home pt high risk for return. hospice consult placed pt may need placement. Review with physician will follow up with hospice.
== END 2020-08-17 13:32 | disposition home or self-care (01) | DRG 381 ==
LOC: ER 11:09 → MEDS 11:10
PROVIDERS: Emergency Medicine; Family Medicine; Internal Medicine Gastroenterology; ADMIT Family Medicine
PROC: 3E0234Z Introduction of Serum, Toxoid and Vaccine into Muscle, Percutaneous Approach (ICD-10-PCS; 2020-08-13)
PROC: 0DB48ZX Excision of Esophagogastric Junction, Via Natural or Artificial Opening Endoscopic, Diagnostic (ICD-10-PCS; principal; 2020-08-15 13:15)
DX: K22.10 Ulcer of esophagus without bleeding (principal); C34.90 Malignant neoplasm of unspecified part of unspecified bronchus or lung; Z68.1 Body mass index [BMI] 19.9 or less, adult; K55.9 Vascular disorder of intestine, unspecified; E44.0 Moderate protein-calorie malnutrition; R64 Cachexia; J44.9 Chronic obstructive pulmonary disease, unspecified; R13.12 Dysphagia, oropharyngeal phase; R59.0 Localized enlarged lymph nodes; G47.00 Insomnia, unspecified; D63.8 Anemia in other chronic diseases classified elsewhere; Z51.5 Encounter for palliative care; Z23 Encounter for immunization; K31.819 Angiodysplasia of stomach and duodenum without bleeding; E11.51 Type 2 diabetes mellitus with diabetic peripheral angiopathy without gangrene; E11.22 Type 2 diabetes mellitus with diabetic chronic kidney disease; N18.30 Chronic kidney disease, stage 3 unspecified; I12.9 Hypertensive chronic kidney disease with stage 1 through stage 4 chronic kidney disease, or unspecified chronic kidney disease; E78.5 Hyperlipidemia, unspecified; M81.0 Age-related osteoporosis without current pathological fracture; F32.9 Major depressive disorder, single episode, unspecified; Z66 Do not resuscitate; I25.10 Atherosclerotic heart disease of native coronary artery without angina pectoris; E86.9 Volume depletion, unspecified; D63.1 Anemia in chronic kidney disease; Z85.51 Personal history of malignant neoplasm of bladder; Z87.891 Personal history of nicotine dependence; Z79.82 Long term (current) use of aspirin; Z79.84 Long term (current) use of oral hypoglycemic drugs; Z79.02 Long term (current) use of antithrombotics/antiplatelets
CPT/HCPCS: 36415; 70491; 71260; 74220; 80053; 82728; 82947; 83540; 83550; 83735; 85025; 88305; 88312; 92610; 99284; A9270; A9270-GY; G0008; J2704; J7120; Q2038; Q9967; U0003

== ENCOUNTER 2020-10-09 15:34 | Emergency (ER) | payer MEDICARE, OTHER ==
[~2020-10-09] VITALS: Ht 152.4 cm; Wt 37.6 kg
[~2020-10-09 15:34] MED LIST changes: +CARAFATE PO; +LIDOCAINE 2% PO; +Mirtazapine7.5 MG PO
[2020-10-09] MEDS ORDERED: Dulcolax5 MG PO (17:46)
[2020-10-09] MEDS ORDERED: Golytely Packe1 EACH PO (17:46)
== END 2020-10-09 19:27 | disposition home or self-care (01) ==
LOC: ER 15:34
DX: K59.00 Constipation, unspecified (principal); F32.9 Major depressive disorder, single episode, unspecified; F41.9 Anxiety disorder, unspecified; I12.9 Hypertensive chronic kidney disease with stage 1 through stage 4 chronic kidney disease, or unspecified chronic kidney disease; E11.22 Type 2 diabetes mellitus with diabetic chronic kidney disease; N18.30 Chronic kidney disease, stage 3 unspecified; J44.9 Chronic obstructive pulmonary disease, unspecified; E78.5 Hyperlipidemia, unspecified; F17.200 Nicotine dependence, unspecified, uncomplicated; Z88.0 Allergy status to penicillin; Z88.8 Allergy status to other drugs, medicaments and biological substances; Z79.82 Long term (current) use of aspirin; Z79.02 Long term (current) use of antithrombotics/antiplatelets; Z79.899 Other long term (current) drug therapy
CPT/HCPCS: 74018; 99283-25